=== PATIENT | male | born 1985 | race African-American/Black ===

== ENCOUNTER 2025-09-05 08:04 | Emergency (ER) | payer OTHER, SELFPAY ==
[2025-09-05 08:34] LABS: #Basophils Less than 0.03 10x3/uL (0.0-0.2); #Eosinophils 0.10 10x3/uL (0.0-0.7); #Monocytes 0.38 10x3/uL (0.11-0.59); #Neutrophils 2.70 10x3/uL (1.40-6.50); %Basophils 0.5 % (0.0-1.0); %Eosinophils 2.5 % (0.0-10.0); %Lymphocytes 21.3 % (21.0-51.0); %Monocytes 9.3 % (0.0-10.0); %Neutrophils 66.2 % (42.0-75.0); Hematocrit 42.5 % (42.0-52.0); Hemoglobin 14.4 g/dL (14.0-18.0); Mean Corpuscular Hemoglobin 29.9 pg (27.0-31.0); Mean Corpuscular Volume 88.4 fL (78.0-98.0); Platelet Count 183 10x3/uL (130-400); Red Blood Cell (RBC) Count 4.81 mill/uL (4.70-6.10); White Blood Cell (WBC) Count 4.08 10x3/uL (4.8-10.8)
[2025-09-05 08:50] LABS: ALT (SGPT) 26 U/L (Less than 45); AST (SGOT) 25 U/L (11-34); Albumin 4.4 g/dL (3.1-4.5); Alkaline Phosphatase 55 U/L (40-110); Anion Gap 12 mmol/L (10-20); BUN (Urea Nitrogen) 11 mg/dL (8.9-20.6); Bilirubin, Total 0.8 mg/dL (0.3-1.2); Calc. Creatinine Clearance 0 mL/min (70-130); Calcium 9.7 mg/dL (7.8-10.44); Carbon Dioxide 28 mmol/L (22-29); Chloride 104 mmol/L (98-107); Globulin 3.3 g/dL (2.4-3.5); Glucose 93 mg/dL (70-105); Potassium 4.1 mmol/L (3.5-5.1); Sodium 140 mmol/L (136-145)
[2025-09-05] MEDS ORDERED: Amoxicillin/Potassium Clav 875 MG TAB ONE (09:55)
== END 2025-09-05 10:07 | disposition home or self-care (01) ==
LOC: ERS 08:04
DX: R22.0 Localized swelling, mass and lump, head (principal); K02.9 Dental caries, unspecified
CPT/HCPCS: 70481; 70487; 80053; 85025; 87428; 96374